=== PATIENT | female | born 1985 | race American Indian/Alaskan Native ===

== ENCOUNTER 2020-03-27 07:32 | Emergency (ER) | payer SELFPAY ==
[2020-03-27 08:04] VITALS: BP 111/93
--- NOTE | 2020-03-27 08:15 | Emergency Department Report ---
ED Lower Extremity HPI - General Chief Complaint: Extremity Injury, Lower Stated Complaint: LFT FOOT INJURY Time Seen by Provider: 03/27/20 08:11 Source: patient Mode of arrival: Ambulatory Limitations: No Limitations - History of Present Illness MD Complaint: foot injury -: Sudden, days(s) (1) Injury: Toes: Left (pain to 2nd toe after hitting corner of counter. ) Type of Injury: blunt Place: home Worsens With: weight bearing, movement, palpation Context: direct blow Associated Symptoms: swelling. denies: able to partially bear weight, ambulatory - Related Data Previous Rx's Medication Instructions Recorded Last Taken Type traMADoL [Ultram] 50 mg PO Q6HR PRN #10 tablet 03/27/20 Unknown Rx Allergies Allergy/AdvReac Type Severity Reaction Status Date / Time No Known Allergies Allergy Unverified 03/27/20 07:58 ED Review of Systems ROS: Stated complaint: LFT FOOT INJURY Other details as noted in HPI Comment: All other systems reviewed and negative ED Past Medical Hx - Past Medical History Previous Medical History?: No - Surgical History Past Surgical History?: No - Medications Home Medications: Home Medications Medication Instructions Recorded Confirmed Last Taken Type traMADoL [Ultram] 50 mg PO Q6HR PRN #10 tablet 03/27/20 Unknown Rx ED Physical Exam - General Limitations: No Limitations General appearance: alert, in no apparent distress - Head Head exam: Present: atraumatic, normocephalic - Eye Eye exam: Present: normal appearance, PERRL, EOMI Pupils: Present: normal accommodation - ENT ENT exam: Present: normal exam, mucous membranes moist - Neck Neck exam: Present: normal inspection, full ROM - Respiratory Respiratory exam: Present: normal lung sounds bilaterally. Absent: respiratory distress - Cardiovascular Cardiovascular Exam: Present: regular rate, normal rhythm. Absent: systolic murmur, diastolic murmur, rubs, gallop - GI/Abdominal GI/Abdominal exam: Present: soft, normal bowel sounds - Extremities Exam Extremities exam: Present: normal inspection, tenderness, normal capillary refill - Expanded Lower Extremity Exam Left Foot/Toe exam: Present: tenderness, swelling Neuro vascular tendon exam: Present: no vascular compromise 1 - Swelling and tenderness to the second digit pain with palpation capillary refills are brisk no broken skin - Back Exam Back exam: Present: normal inspection - Neurological Exam Neurological exam: Present: alert, oriented X3 - Psychiatric Psychiatric exam: Present: normal affect, normal mood - Skin Skin exam: Present: warm, dry, intact, normal color. Absent: rash ED Course Vital Signs 03/27/20 08:03 Temperature 98.1 F Pulse Rate 102 H Respiratory 16 Rate Blood Pressure 111/93 O2 Sat by Pulse 98 Oximetry - Procedure Description Procedures done: Robby tape to the toe and postop shoe was provided ED Lower Extremity MDM - Radiology Data Radiology results: report reviewed [facility] [address] [place] [address] XRay Report Signed Patient: DU FISCHER MR#: [id number] : 1985 Acct:[id number] Age/Sex: 35 / F ADM Date: 03/27/20 Loc: ED Attending Dr: Ordering Physician: ED MD STUART Date of Service: 03/27/20 Procedure(s): XR toe(s) 2+V LT Accession Number(s): [id number] cc: ED MD STUART Fluoro Time In Minutes: LEFT TOE(S) 3 VIEW(S) INDICATION / CLINICAL INFORMATION: Trauma. Second toe pain. COMPARISON: None available. FINDINGS: BONES / JOINT(S): There is a comminuted, obliquely oriented fracture of the distal aspect of the second toe proximal phalanx with intra-articular extension. No additional fractures are seen. There is no dislocation. No significant arthritis. SOFT TISSUES: No significant abnormality. ADDITIONAL FINDINGS: None. Signer Name: Shantanu Valdes MD Signed: 03/27/2020 9:10 AM Workstation Name: [id number] Transcribed By: SS Dictated By: SHANTANU VALDES Electronically Authenticated By: SHANTANU VALDES Signed Date/Time: 03/27/20909 DD/ 7 TD/TT: Critical care attestation.: If time is entered above; I have spent that time in minutes in the direct care of this critically ill patient, excluding procedure time. ED Disposition Clinical Impression: Toe fracture, left Disposition: DC-01 TO HOME OR SELFCARE Condition: Stable Instructions: Toe Fracture (ED) Prescriptions: traMADoL [Ultram] 50 mg PO Q6HR PRN #10 tablet PRN Reason: Pain Referrals: PRIMARY CARE, [Primary Care Provider] - 3-5 Days [facility] [Provider Group] - 3-5 Days
--- NOTE | 2020-03-27 09:14 | XRay Report ---
LEFT TOE(S) 3 VIEW(S) INDICATION / CLINICAL INFORMATION: Trauma. Second toe pain. COMPARISON: None available. FINDINGS: BONES / JOINT(S): There is a comminuted, obliquely oriented fracture of the distal aspect of the [place] toe proximal phalanx with intra-articular extension. No additional fractures are seen. There is no dislocation. No significant arthritis. SOFT TISSUES: No significant abnormality. ADDITIONAL FINDINGS: None. Signer Name: Cody Valdes MD Signed: 03/27/2020 9:10 AM Workstation Name: [id number]
== END 2020-03-27 11:49 | disposition home or self-care (01) ==
LOC: ED 07:32
DX: S92.912A Unspecified fracture of left toe(s), initial encounter for closed fracture (principal); Z79.899 Other long term (current) drug therapy; W22.8XXA Striking against or struck by other objects, initial encounter; Y93.89 Activity, other specified; Y92.89 Other specified places as the place of occurrence of the external cause; Y99.8 Other external cause status
CPT/HCPCS: 99283